=== PATIENT | male | born 1990 | race African-American/Black ===

== ENCOUNTER 2018-02-05 18:26 | Emergency (ER) | payer BC ==
[~2018-02-05] VITALS: Ht 172.7 cm; Wt 63.0 kg
[2018-02-05] MEDS ORDERED: KETOROLAC 60MG/2ML VIAL IM ONE (20:45)
[2018-02-05] MEDS ORDERED: METHOCARBAMOL 500MG TABLET PO ONE (20:45)
[2018-02-05] MEDS ORDERED: BACITRACIN ZINC OINT UDPKT TOP ONE ×2 (21:00→21:15)
[2018-02-05 21:10] VITALS: BP 133/84
== END 2018-02-06 11:43 | disposition home or self-care (01) ==
LOC: ER 18:26
DX: S50.812A Abrasion of left forearm, initial encounter (principal); S50.811A Abrasion of right forearm, initial encounter; M54.2 Cervicalgia; R51 Headache; V49.88XA Car occupant (driver) (passenger) injured in other specified transport accidents, initial encounter; Y93.89 Activity, other specified; Y92.89 Other specified places as the place of occurrence of the external cause; Y99.8 Other external cause status
CPT/HCPCS: 96372; 99284; J1885; Z7610

== ENCOUNTER 2019-08-29 09:38 | Emergency (ER) | payer SELFPAY ==
[~2019-08-29] VITALS: Ht 172.7 cm; Wt 66.0 kg
[2019-08-29] MEDS ORDERED: SODIUM CHLORIDE 0.9% 1,000 ML IV ONE (10:26)
[2019-08-29] MEDS ORDERED: ONDANSETRON HCL 4MG/2ML INJ IV STA (10:26)
[2019-08-29] MEDS ORDERED: MAGNESIUM/ALUMINUM HYDROXIDE/SIMETHICONE 30ML UDC PO STA (10:26)
[2019-08-29 10:52] LABS: BASOPHILS % 0.5 % (0.0-2.0); EOSINOPHILS % 0.7 % (0.0-5.0); HEMATOCRIT. 43.3 % (42.0-52.0); HEMOGLOBIN. 14.9 g/dL (14.0-18.0); LYMPHOCYTES % 13.6 % (20.0-50.0); MEAN CORPUSCULAR HEMOGLOBIN 30.5 pg (28.0-32.0); MEAN CORPUSCULAR VOLUME 88.5 fL (80.0-94.0); MONOCYTES % 5.1 % (2.0-8.0); NEUTROPHILS % 80.1 % (40.0-76.0); PLATELET 202 x1000/uL (130-400); RED CELL DISTRIBUTION WIDTH 13.3 % (11.6-14.6)
[2019-08-29 11:01] LABS: CHLORIDE 108 mEq/L (98-107)
[2019-08-29 11:45] VITALS: BP 143/82
== END 2019-08-29 14:27 | disposition home or self-care (01) ==
LOC: ER 13:07
DX: R10.9 Unspecified abdominal pain (principal); R11.2 Nausea with vomiting, unspecified
CPT/HCPCS: 36415; 80053; 83690; 85025; 96374; 99283; J2405; J7030